=== PATIENT | female | born 1950 | race Caucasian/White ===

== ENCOUNTER 2018-03-24 09:19 | Emergency (ER) | payer MEDICARE, BC ==
[~2018-03-24] VITALS: Ht 160 cm; Wt 108.9 kg
--- NOTE | 2018-03-24 09:47 | PHYS DOC ---
Adult General Chief Complaint Chief Complaint: MECHANICAL FALL HPI HPI This is a pleasant 68-year-old female who presents the emergency department today after head injury while at the [facility]. She reports having a mechanical fall. She denies loss of consciousness. She hit the front of her head on an electronic ruellete table. She is on Xerolto for DVTs. She complains of neck pain and left shoulder pain. She did sustain in the elbow abrasion but denies any deeper pain with movement of the elbow. The pain in her neck as a sharp shooting mild pain without radiation. Past medical history: She has a history of small bowel obstruction, peripheral arterial disease, hypercoagulable factor V Leiden, diabetes mellitus, Past surgical history: History of hysterectomy, appendectomy, stent placement in her left leg. History of IVC filter placement. Social history: Denies smoking drinking or IV drug use Review of systems is negative for chest pain shortness of breath abdominal pain back pain hip pain. She denies any lower extremity pain. All other review of systems is negative unless otherwise noted in history of present illness. ED course: 68-year-old female presenting the emergency department after head injury. Head neck CT obtained. Shoulder x-ray of the left shoulder obtained. Head neck CT shows no acute intracranial abnormality. Patient has hematoma which is visible on external examination. Otherwise shoulder is unremarkable for acute fracture or dislocation. Patient's blood pressure was elevated in the emergency department. She reports not having a history of high blood pressure. I had placed some basic blood tests to assess for possible evidence of end organ damage or dysfunction which the patient refuses. She demonstrates medical decision making capacity and is able make medical decisions. I explained the risks of delayed head bleed in a patient that is anticoagulated. I offered the patient admission to the hospital for a second head CT and 12 hours along with treatment for her blood pressure. The patient would like to leave AMA and follow up with her doctor tomorrow. I informed the patient of their right to a medical screening exam and any treatment and/or stabilization that may be necessary regardless of their ability to pay. The patient appears to have intact insight, judgment, and reason. In my opinion, this patient has the capacity to make decisions. The patient presented with head injuyr and am concerned for her high blood pressure and possibility of a delayed head bleed given Xarelto. I explained to the patient that we could keep her in the hospital for repeat head CT she does not desire this. I explained the risk of and disability to the patient in plain language which they were able to demonstrate in their own words verbal understanding. I discussed the limitations of the workup thus far. The pt has verbalized understanding of my concerns. I offered alternatives to the therapy including follow-up with primary care doctor tomorrow. I explained that at any time if the patient changed their mind, we are always open and would be happy to have them back. The patient refused further care and then left against medical advice. Review of Systems Review of Systems SEE ABOVE. Current Medications Current Medications Current Medications Medications (Trade) Dose Ordered Sig/Swati Start Time Stop Time Status Last Admin Dose Admin Acetaminophen/ Hydrocodone Bitart (Lortab 5/325) 2 tab 1X ONCE 03/24/18 13:00 03/24/18 13:03 DC 03/24/18 13:26 2 TAB Allergies Allergies Allergies Coded Allergies Type Severity Reaction Last Updated Verified NSAIDS (Non-Steroidal Anti-Inflamma Allergy Unknown r/t on blood thinners. 03/24/18 Yes levofloxacin Allergy Unknown "Don't know, don't ask me. It was years ago." 03/24/18 Yes Physical Exam Physical Exam SEE ABOVE Constitutional: Well developed, well nourished, no acute distress, non-toxic appearance. [] HENT: Normocephalic, swelling to the forehead. No palpable skull fracture. No lacerations or abrasions. Nontender in the midline of the cervical spine. bilateral external ears normal, oropharynx moist, no oral exudates, nose normal. [] Eyes: PERRLA, EOMI, conjunctiva normal, no discharge. [] Neck: Normal range of motion, no tenderness, supple, no stridor. [] Cardiovascular:Heart rate regular rhythm, no murmur [] Lungs & Thorax: Bilateral breath sounds clear to auscultation [] Abdomen: Bowel sounds normal, soft, no tenderness, no masses, no pulsatile masses. [] Skin: Warm, dry, no erythema, no rash. [] Back: No tenderness, no CVA tenderness. [] Extremities: No tenderness, no cyanosis, no clubbing, ROM intact, no edema. [] , Except the abrasion to the right elbow and she has pain with passive range of motion of the left shoulder. Examination the left shoulder shows no deformity. No laceration abrasion or ecchymosis over the overlying skin. Palpable pulse distally. Neurovascularly intact distally. Normal motor and sensory function of the left hand. The right elbow is nontender to palpation with normal range of motion. Neurologic: Mental status: Awake oriented and alert x3 Cranial nerves: Extraocular movements intact, eyebrows rebeka bilaterally, smile symmetric, uvula elevation nl, shoulder shrug intact bilaterally, tongue protrusion normal DTRs: 2+ Sensation: equal and normal in all extremities Strength: 5/5 in upper and lower extremities bilaterally Psychologic: Affect normal, judgement normal, mood normal. [] Current Patient Data Vital Signs Vital Signs Date Time Temp Pulse Resp B/P (MAP) Pulse Ox O2 Delivery O2 Flow Rate FiO2 03/24/18 13:30 78 16 100 03/24/18 13:26 Room Air 03/24/18 09:19 98.4 188/79 (115) 98.4 EKG EKG [] Radiology/Procedures Radiology/Procedures [] Course & Med Decision Making Course & Med Decision Making Pertinent Labs and Imaging studies reviewed. (See chart for details) [] Dragon Disclaimer Dragon Disclaimer This electronic medical record was generated, in whole or in part, using a voice recognition dictation system. Departure Departure Impression: Primary Impression: Head injury Additional Impressions: Neck pain Shoulder pain Elbow abrasion Disposition: 07 AGAINST MEDICAL ADVICE Condition: GUARDED Patient Instructions: Head Injury, Adult Additional Instructions: Please return to the emergency department if your symptoms worsen. Please return to the emergency Department if you change your mind and would like to be admitted for a second CT scan in 12 hours. Otherwise, follow-up with your doctor tomorrow. You'll need follow-up for your high blood pressure. Problem Qualifiers RHEA SMITH MD Mar 24, 2018 09:47
--- NOTE | 2018-03-24 11:19 | RAD ---
CT HEAD AND CERVICAL SPINE WO Indication: HEAD AND NECK PAIN POST FALL, DIZZY, NO PRIORS Exposure: One or more of the following individualized dose reduction techniques were utilized for this examination: 1. Automated exposure control 2. Adjustment of the mA and/or kV according to patient size 3. Use of iterative reconstruction technique. Comparison: None are available. Contrast: None HEAD Posterior fossa is unremarkable. No evidence of acute intracranial hemorrhage or abnormal extra-axial fluid collection. No evidence of mass effect or midline shift. Mild prominence of ventricles and sulci compatible with mild atrophy. Subtle intracranial arterial calcification. Subtle white matter low-density, nonspecific but likely due to chronic small vessel ischemic disease. Visualized orbits are unremarkable. Visualized paranasal sinuses and mastoids are clear. No evidence of depressed skull fracture. Swelling and density in the right frontal scalp, compatible with a hematoma. Impression: 1. Right frontal scalp hematoma. 2. Chronic findings, as detailed above. 3. No acute intracranial hemorrhage or mass effect is identified. CERVICAL SPINE C1 ring: Intact Cervico-occipital junction: Intact C1-C2 relationship: Mild degenerative changes at the anterior articulation. Symmetric. Fracture: No acute fracture identified. Spondylosis: Multilevel degenerative spondylosis. No high-grade osseous spinal stenosis. Alignment: No evidence of traumatic subluxation. There is a left lateral curvature of the cervical spine. Facets: Degenerative changes. No evidence of perched or locked facet. Prevertebral soft tissues: No significant swelling or hematoma Thyroid: Symmetric Lung apices: Clear Impression: Mild degenerative spondylosis. No evidence of acute fracture or subluxation. Electronically signed by: Jeffrey Chamberlain MD (03/24/2018 11:16 AM) [id number]
--- NOTE | 2018-03-24 11:20 | RAD ---
EXAM: 3 views left shoulder DATE: 03/24/2018 9:50 AM INDICATION: PT FELL TODAY. LT SHOULDER PAIN COMPARISON: No Prior FINDINGS: No evidence of acute fracture or dislocation. AC joint degenerative changes are seen. Glenohumeral joint is observed without proliferative change. Humeral head is not high riding. IMPRESSION: No evidence of acute fracture or dislocation. Electronically signed by: Edilberto Schmidt MD (03/24/2018 11:17 AM) [id number]
[2018-03-24] MEDS ORDERED: HYDROcodone/APAP 5/325MG 1 TAB TABLET PO ONE (13:00)
[2018-03-24 13:30] VITALS: BP 216/86
== END 2018-03-24 13:45 | disposition left against medical advice (07) ==
LOC: ER 09:19
DX: S50.312A Abrasion of left elbow, initial encounter (principal); S09.90XA Unspecified injury of head, initial encounter; M25.512 Pain in left shoulder; E11.9 Type 2 diabetes mellitus without complications; Z90.89 Acquired absence of other organs; Z90.710 Acquired absence of both cervix and uterus; Z95.5 Presence of coronary angioplasty implant and graft; I73.9 Peripheral vascular disease, unspecified; Z88.1 Allergy status to other antibiotic agents; Z88.6 Allergy status to analgesic agent; W18.39XA Other fall on same level, initial encounter; Y93.89 Activity, other specified; Y92.89 Other specified places as the place of occurrence of the external cause; Y99.8 Other external cause status
CPT/HCPCS: 70450; 72125; 73030; 99284-25